=== PATIENT | male | born 1975 | race Caucasian/White ===

== ENCOUNTER 2018-04-04 11:31 | Emergency (ER) | payer SELFPAY ==
[2018-04-04 11:32] VITALS: BP 177/101; PULSE 97; RESP 16; TEMP 36.8; O2SAT 98; BMI 33.5
--- NOTE | 2018-04-04 12:08 | ED.DCSUM_ITS ---
- ER Visit Summary Date of Service: 04/04/18 Chief Complaint: Possible pinkeye History of Present Illness: The patient is a 42 M who noted left eye irritation and burning started yesterday. Was gradual in onset. He denies foreign body sensation. He states he does have somewhat blurry vision. 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 He does not wear glasses or contacts. He has not had recent URI symptoms. Physical Examination: Vital signs significant for blood pressure 177/101, otherwise unremarkable. Patient sitting upright in bed in a well lit room. He is in no acute distress. Head neck examination does reveal left eye to be diffusely injected. There is mild watering. Pupils equal and reactive. No foreign body noted on exam. Extraocular movements fully intact. Test Results: [] Emergency Department Course and Treatment: Fluorescein is applied and reveals no evidence of uptake. Patient will be treated with gentamicin eyedrops and off work for 24 hours. Treatment Plan: [] Disposition: Discharge Impression: Conjunctivitis left eye This note was generated with [employer] dictation software. It may contain incorrect words, spelling, and punctuation that were not noted in review of the chart prior to signing ED Disposition - Plan for ED Patient: Chief Complaint: Eye Problem Referrals: Care Physician,No Primary [Primary Care Provider] -
--- NOTE | 2018-04-04 12:08 | ED.DEP ---
ED Disposition - Plan for ED Patient: Disposition: Home or Assisted Living Chief Complaint: Eye Problem Instructions: ED Conjunctivitis Nonspecific Referrals: Ryan Crawford MD [STAFF PHYSICIAN] - 3-5 Days if not improving Additional Instructions: Use 2 drops Gentamicin four times a day until redness resolved for full 24 hours.
[2018-04-04] MEDS: Fluorescein 1 MG STRIP 1 STRIP LEFT EYE (12:15)
[2018-04-04] MEDS: Gentamicin Sulfate 1 OPTH.BTL 2 DRP LEFT EYE (12:22)
== END 2018-04-04 12:36 | disposition home or self-care (01) ==
LOC: ED 12:15
PROVIDERS: Emergency Provider Emergency Medicine
DX: H10.32 Unspecified acute conjunctivitis, left eye (principal)
CPT/HCPCS: 99282

== ENCOUNTER 2018-08-06 04:11 | Emergency (ER) | payer SELFPAY ==
[2018-08-06 04:11] VITALS: BP 197/131; PULSE 97; RESP 16; TEMP 36.6; O2SAT 98; BMI 33.6
--- NOTE | 2018-08-06 04:24 | ED.VISSUMM ---
- ER Visit Summary Date of Service: 08/06/18 Chief Complaint: Right hand tingling and pain History of Present Illness: The patient is a 43 M with no primary care physician. He reports that he is tingling in his right hand and pain began approximately 3 hours ago while he was watching TV. Reports is an aching pain is 6 out of 10 at worst and 4-10 currently. Is worsened by nothing. Is relieved by rest. Reports that he feels as though he needs to shake his hand out. Patient is right-hand dominant. He works in a restaurant as a cook. He denies any recent trauma. No fall, MVA, or change in activity. Reports he has not had this previously. He denies any weakness. He denies any other neurologic symptoms. Physical Examination: Vitals: Stable. Afebrile. General: Well-nourished and well-developed. Head: Normocephalic atraumatic. Neck: Supple, no lymphadenopathy. No JVD. Nontender. Cardiovascular: Regular rate and rhythm. No murmurs. Respiratory: No respiratory distress. Clear to auscultation bilaterally. Abdominal: Soft, nontender, nondistended, normal bowel sounds. No guarding, rebound, or peritoneal signs. Back: Nontender. Extremities: Nontender, no edema. 2+ radial pulse. He does have a positive Tinel sign on the right. He had decreased sensation to light touch in the median nerve distribution. Skin: Normal color, no rash. Neurologic: Alert and oriented ?3. Cranial nerves II through XII are intact. Normal strength and sensation. Psych: Normal affect. Emergency Department Course and Treatment: Patient was treated with naproxen. He was placed in a Velcro wrist splint. He is resting comfortably. Treatment Plan: Patient will be discharged instructions [facility] if not improving. Please placed on naproxen at home. Return to the emergency department for any worsening symptoms. Disposition: To home in improved and stable condition. Impression: 1. Carpal tunnel on right. This note was generated with [employer] software. It may contain incorrect words, spelling, and punctuation that were not noted in review of the chart prior to signing ED Disposition - Plan for ED Patient: Disposition: Home or Assisted Living Chief Complaint: Upper Extremity Injury Instructions: ED Carpal Tunnel Prescriptions: Naproxen [Naprosyn] 500 mg PO BID #14 tablet Referrals: Mary Grace Garibay [NON-STAFF] - 1 Week if not improving
[2018-08-06] MEDS: Naproxen 250 MG Tablet 500 MG PO (04:28)
[2018-08-06 04:37] VITALS: BP 163/110; RESP 16
== END 2018-08-06 04:37 | disposition home or self-care (01) ==
PROVIDERS: Emergency Provider Emergency Medicine
DX: G56.01 Carpal tunnel syndrome, right upper limb (principal)
CPT/HCPCS: 99283

== ENCOUNTER 2018-12-02 00:32 | Emergency (ER) | payer SELFPAY ==
[2018-12-02 00:33] VITALS: BP 200/110; PULSE 112; RESP 18; TEMP 36.6; O2SAT 98; BMI 33.9
[2018-12-02 00:37] VITALS: BP 191/107
--- NOTE | 2018-12-02 00:49 | ED.VISSUMM ---
- ER Visit Summary Date of Service: 12/02/18 Chief Complaint: Dental pain History of Present Illness: The patient is a 43 M who presents with dental pain. This been present for 3 days. He states he knows that work needs done on his teeth but he does not have dental insurance so has not had anything done yet. His pain is worse in his right upper teeth for the past 3 days. No fevers or facial swelling. No nausea vomiting or diarrhea. Physical Examination: Heart rate 112 blood pressure 191/107 vitals otherwise normal Patient has widespread dental decay he has tenderness with percussion of the right central maxillary incisor there is no focal abscess amenable to incision and drainage No facial or jaw swelling No trismus Clear speech Heart regular Lungs clear Test Results: Not indicated Emergency Department Course and Treatment: Patient was started on penicillin VK. He was given his first dose here. I did stress that this does not replace definitive dental care and stressed the importance of follow-up with dentist. He was given a list of resources in the area of local dental clinics. He was also advised that his blood pressure is high at 191/107 and I stressed the importance of outpatient follow-up for this and recommended the [facility] clinic. Patient understands to return for new or worsening symptoms and was discharged home. Treatment Plan: [] Disposition: Discharge Impression: Odontalgia Dental caries This note was generated with [employer] dictation software. It may contain incorrect words, spelling, and punctuation that were not noted in review of the chart prior to signing ED Disposition - Plan for ED Patient: Referrals: Care Physician,No Primary [Primary Care Provider] -
--- NOTE | 2018-12-02 00:52 | ED.DCSUM_ITS ---
- ER Visit Summary Date of Service: 12/02/18 Chief Complaint: Dental pain History of Present Illness: The patient is a 43 M who presents with dental pain. This been present for 3 days. He states he knows that work needs done on his teeth but he does not have dental insurance so has not had anything done yet. His pain is worse in his right upper teeth for the past 3 days. No fevers or facial swelling. No nausea vomiting or diarrhea. Physical Examination: Heart rate 112 blood pressure 191/107 vitals otherwise normal Patient has widespread dental decay he has tenderness with percussion of the right central maxillary incisor there is no focal abscess amenable to incision and drainage No facial or jaw swelling No trismus Clear speech Heart regular Lungs clear Test Results: Not indicated Emergency Department Course and Treatment: Patient was started on penicillin VK. He was given his first dose here. I did stress that this does not replace definitive dental care and stressed the importance of follow-up with dentist. He was given a list of resources in the area of local dental clinics. He was also advised that his blood pressure is high at 191/107 and I stressed the importance of outpatient follow-up for this and recommended the [facility] clinic. Patient understands to return for new or worsening symptoms and was discharged home. Treatment Plan: [] Disposition: Discharge Impression: Odontalgia Dental caries This note was generated with [employer] dictation software. It may contain incorrect words, spelling, and punctuation that were not noted in review of the chart prior to signing ED Disposition - Plan for ED Patient: Referrals: Care Physician,No Primary [Primary Care Provider] -
--- NOTE | 2018-12-02 00:52 | ED.DEP ---
ED Disposition - Plan for ED Patient: Instructions: ED Tooth Pain Prescriptions: Penicillin V Potassium 500 mg PO 4X/DAY #40 tab Referrals: Care Physician,No Primary [Primary Care Provider] -
[2018-12-02] MEDS: Penicillin Vk 250 MG Tablet 500 MG PO (01:37)
== END 2018-12-02 01:39 | disposition home or self-care (01) ==
LOC: ED 01:01
PROVIDERS: Emergency Provider Emergency Medicine
DX: K02.9 Dental caries, unspecified (principal); R03.0 Elevated blood-pressure reading, without diagnosis of hypertension
CPT/HCPCS: 99282

== ENCOUNTER 2023-08-16 08:29 | Emergency (ER) | payer OTHER, SELFPAY ==
[2023-08-16 08:29] VITALS: BP 129/103; PULSE 126; RESP 18; TEMP 36.3; O2SAT 100; BMI 25.8
--- NOTE | 2023-08-16 08:39 | ED.VIS.DENTA ---
HPI History of Present Illness Chief Complaint: Dental Detail of Chief Complaint: Front tooth pain and swelling Informant: patient and spouse/S.O. Onset/Context/Timing Onset: Days Context: Sudden Onset Timing: Continuous Quality: Pain Location: Front upper incisor, tooth #9 Current Severity: Moderate Maximum Severity: Severe Worsened by: Nothing specific Relieved by: NSAIDs and Topicals Associated Symptoms Assocated Symptom - Dental: face swelling; Negative for fever, jaw swelling, cold sensitivity or hot sensitivity Narrative Narrative: Patient is a 48-year-old male with diabetic retinopathy, hypertension who presents with dental pain. He has poor dentition. He reports swelling of his upper lip. Denies any redness to his skin. He denies fever or chills. He denies history rheumatic fever, heart murmur, SBE or being immune suppressed. He denies skin lesions. He denies myalgias or arthralgias. Prior similar symptoms: Yes Recent Illness/Hospitalization: No PFSH PFSH Medical History (Updated 08/16/23 @ 08:[address] Rayray Carbajal MD) Physical exam, pre-employment Home Medications penicillin V potassium 500 mg tablet 500 mg PO 4X/DAY #40 tabs 12/02/18 [Rx Last Taken Unknown] clindamycin HCl 300 mg capsule (Cleocin HCl) 300 mg PO Q6H #28 CAPSULES 08/16/23 [Rx Last Taken Unknown] hydrocodone-acetaminophen 5-325mg 5mg-325mg 1 tab PO Q6H PRN PRN Pain 3 days #10 TABLETS 08/16/23 [Rx Last Taken Unknown] Allergy/AdvReac Type Severity Reaction Status Date / Time No Known Allergies Allergy Verified 08/16/23 08:31 Surgical History no surgical history no surgical history Social History Smoking Status: Never smoker ROS ROS ED Constitutional Constitutional ED: Denies chills, fever(s), subjective, sweats or weight loss Eyes Eyes: Reports other Details: Impaired vision due to diabetic retinopathy ; Denies blurry vision or change in vision ENT ENT ED: Denies rhinorrhea or sore throat Cardiovascular Cardiovascular: Denies chest pain or palpitations Respiratory/Chest Respiratory/Chest: Denies cough, dyspnea or dyspnea on exertion Hematologic/Lymphatic Hematologic/Lymphatic: Denies easy bleeding or easy bruising Allergic/Immunologic Allergic/Immunologic ED: Reports mouth swelling; Denies tongue swelling or urticaria EXAM Physical Exam Narrative Exam Narrative: Tachycardic. He states he is nervous. Const Vital Signs: 08/16/23 08:29 Temperature 97.4 F L Temperature Source Temporal Pulse Rate 126 H Respiratory Rate 18 Blood Pressure 129/103 H Blood Pressure Mean 111 Pulse Ox 100 Oxygen Delivery Method Room Air Positive well nourished and well developed General Appearance ED: well developed and NAD HEENT tenderness; Negative for trauma Face and Sinus: sinuses nontender Mouth ED: Yes lips normal, Yes tongue normal, Yes salivary gland normal and Yes oral and palatal mucosa abnormal Mouth: lips normal, tongue normal, salivary gland normal and oral and palatal mucosa abnormal Teeth and Gingiva: abnormal tooth and associated gingiva, caries, gingiva abnormal and poor dentition Throat: posterior oropharynx normal Eyes PERRL and EOMs intact bilaterally General Eye ED: Negative for pale conjunctiva or scleral icterus Neck no lymphadenopathy, supple and no JVD Lymph Lymphatic: no lymphadenopathy noted Chest Wall inspection of chest normal and palpation of chest normal Resp normal respiratory effort, no retractions and clear to auscultation bilaterally Cardio regular rhythm, S1 normal heart sound, S2 normal heart sound and no murmurs Extremity normal to inspection and no joint enlargement General Extremety ED: Negative for edema or other findings General Extremity: Negative for edema or other findings Neuro oriented x3, CN's II-XII intact bilaterally and moves all extremities Sensorium / Orientation: alert Psych mental status grossly normal Skin no rashes or lesions noted MDM MDM MDM Narrative Medical decision making narrative: Dental abscess involving tooth #9 with fistulization. There is drainage of purulent material. Premature was expressed with pushing on the above the tooth. The tooth is eroded to the pulp. Patient has significant dental pathology with other eroded teeth. Treatment is clindamycin and open analgesic. In light of his poorly controlled diabetes with endorgan dysfunction hesitant to give NSAIDs. He received first dose of clindamycin and hydrocodone in the emergency Discharge Plan Triage Chief Complaint: Dental ED Provider: Rayray Carbajal Dx/Rx/DC Orders Clinical Impression: Apical alveolar abscess, Type 2 diabetes mellitus, Hypertension, Diabetic retinopathy, Dental fistula Instructions: ED Abscess Antibiotic Treatment Only Prescriptions: New clindamycin HCl [Cleocin HCl] 300 mg capsule 300 mg PO Q6H Qty: 28 0RF hydrocodone-acetaminophen [hydrocodone-acetaminophen] 5-325 mg tablet 1 tab PO Q6H PRN PRN (Reason: Pain) 3 Days Qty: 10 0RF No Action penicillin V potassium 500 MG tablet 500 mg PO 4X/DAY Qty: 40 0RF Primary Care Provider: Claus Thomas Referrals: Care Physician,No Primary [Non-Staff] - Activity Restrictions/Additional Instructions: Occasion as prescribed until gone. Follow-up with dentist. Disposition Disposition: Home, Self Care
[2023-08-16] MEDS: HYDROcodone Bitartrate/Apap 5/325 Tablet PO (08:47)
[2023-08-16] MEDS: Clindamycin HCl 150 MG Capsule 300 MG PO (08:47)
--- OUTSIDE RECORDS SUMMARY | 2023-08-16 09:13 | XMS RPT_ITS | CCD ---
Author Name Unknown Address [address] [place] [address] Organization [facility] Care Team Providers Care Getter Operator Name Role Phone William PHILLIPS, Claus Garcia Primary Care Provider [phone] Medications Current Medications Medication Drug Class(es) Dates Sig (Normalized) Sig (Original) phenylephrine hydrochloride 25 mg/ml ophthalmic solution (1 source) alpha-1 Adrenergic Agonist Start: 06-20-2022 End: 06-20-2022 PHENYLephrine 2.5 % 1 Drop (AK-DILATE, EVY-SYNEPHRINE) proparacaine hydrochloride 5 mg/ml ophthalmic solution (1 source) Local Anesthetic Start: 06-20-2022 End: 06-20-2022 proparacaine 0.5 % 1 Drop (ALCAINE) tropicamide 10 mg/ml ophthalmic solution (1 source) Anticholinergic Start: 06-20-2022 End: 06-20-2022 tropicamide 1 % 1 Drop (MYDRIACYL) Problems Problem Classification Problem Date Documented Date Episodic/Chronic Diabetes mellitus with complications (4 sources) Type 2 diabetes mellitus; Translations: [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, right eye] Onset: 06-20-2022 Chronic Essential hypertension (2 sources) Essential hypertension; Translations: [Essential (primary) hypertension] Onset: 06-20-2022 Chronic Other eye disorders (2 sources) Hemorrhage of left vitreous body; Translations: [Vitreous hemorrhage, left eye] Onset: 06-20-2022 Chronic Results Test Name Value Interpretation Reference Range Facil ity Vital Signs Date Time Vital Sign Value Performing Clinician Faci lity 06-20-2022 10:36-0500 Diastolic blood pressure 67 mm[Hg] Vinicio Drew MD Work Phone: [facility] 06-20-2022 10:36-0500 Heart rate 99 /min Vinicio Drew MD Work Phone: [facility] 06-20-2022 10:36-0500 Systolic blood pressure 112 mm[Hg] Vinicio Drew MD Work Phone: [facility] Encounters Encounter Date Encounter Type Care Provider Facility Start: 06-20-2022 End: 06-20-2022 Patient encounter procedure Vinicio Drew MD Work Phone: Ophthalmology Procedures Date Procedure Procedure Detail Performing Clinician Start: 06-20-2022 Fundus photography w/interpretation & report Vinicio Drew MD Work Phone: Start: 06-20-2022 Computerized ophthal tiesha imaging retina Vinicio Drew MD Work Phone: Plan of Treatment Date Care Activity Detail Author Start: 06-21-2022 End: 08-21-2022 Calcium [Mass/volume] in Serum or Plasma CALCIUM TOTAL BLD Lab Routine Type 2 diabetes mellitus with right eye affected by severe nonproliferative retinopathy without macular edema, without long-term current use of insulin (HCC) 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, without long-term current use of insulin (HCC) Expected: 06/21/2022, Expires: 08/21/2022 [facility] Work Phone: Social History Date Type Detail Facility Start: 06-20-2022 Tobacco smoking stat us MDIS Never smoked tobacco [facility] Start: 06-20-2022 Tobacco use and exposure Smoke less tobacco non-user [facility] Start: 06-20-2022 Alcohol intake Lifetime non-d german (finding) [facility] Start: 1975 Sex Assigned At Not on file [facility] Start: 06-10-2022 End: 06-20-2022 Exposure to SARS-CoV-2 (event) Not sure [facility] Instructions 06-20-2022 Patient Instructions Note Date & Type Note Facility 06-20-2022 Instructions Vinicio Drew MD - 06/20/2022 11:07 AM EST Please obtain bloodwork tomorrow at any [facility] (must fast 8 hours prior to blood draw) You have an appointment with Dr. Cindy White MD for complete physical on 07/09/2022 at 10:20 in the [place] office You will see Dr. Noonan, Retina specialist (office will call to set up an appointment date and time with you) Please keep your blood sugar under good control to minimize risk of ocular complications from diabetes. If you have any questions please contact our office at [phone]. After office hours or on the weekend, please call Dr. Drew on his cell phone at [phone]. documented in this encounter [facility] History of Present illness Narrative 06-20-2022 Vinicio Drew MD - 06/20/2022 10:50 AM EST Note Date & Type Note Facility 06-20-2022 History of Presen t illness Narrative ASSESSMENT/PLAN: 1. Type 2 diabetes mellitus with right eye affected by severe nonproliferative retinopathy without macular edema, without long-term current use of insulin ([facility]) - ICD9: 250.50, 362.06, ICD10: E11.3491 (primary diagnosis) 2. 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 Vitreous hemorrhage of left eye ([facility]) - ICD9: 379.23, ICD10: H43.12 Patient to obtain the following bloodwork: - CBC + DIFF - HEMOGLOBIN (HGB) - COMP METABOLIC PANEL - HGB A1C - BUN BLOOD - CREATININE BLD - CALCIUM TOTAL BLD - GLUCOSE FASTING BLD - ELECTROLYTES BLD PNL - Consult Dr. Saran MD, PhD, Retina for further evaluation and treatment - Consult Dr. Cindy White MD, for further evaluation and treatment. Patient is scheduled for 07/09/2022 at 10:20 am in the [place] office (already previously scheduled) Patient reports never having an eye exam and has not seen a primary care physician in over 10 years 4. Essential hypertension - ICD9: 401.9, ICD10: I10 Blood pressure 112/67, pulse 99. I have confirmed and edited as necessary the relevant ophthalmic history, review of systems, surgical history, and ophthalmological examination findings as obtained by the ophthalmic technical staff. I have seen and examined Carlos Nunes. I have discussed the examination findings, diagnosis, and treatment options with Carlos Nunes and/or his family. I have also reviewed and agree with the assessment and plan as stated above and agree with all its relevant components. I gave the patient the opportunity to ask questions about the findings, diagnosis, and treatment options. Vinicio Drew MD documented in this encounter [facility] Evaluation note Note Date & Type Note Facility documented in this encounter [facility] Medications Administered Section Active Administered Medications - up to 3 most recent administrations Medication Order MAR Action Action Date Dose Rate Site PHENYLephrine 2.5 % 1 Drop (AK-DILATE, EVY-SYNEPHRINE) 1 Drop, BOTH EYES, DIRECTED, Starting on Sat06/20/22 at 1000, Until Sat06/20/22 at 2158, Administer for dilation PROTECT FROM LIGHT Given 06/20/2022 10:00 AM EST 1 Drop proparacaine 0.5 % 1 Drop (ALCAINE) 1 Drop, BOTH EYES, DIRECTED, Starting on Sat06/20/22 at 1000, Until Sat06/20/22 at 2158, Administer for pneumo tonometry, tonopen tonometry, or pachymetry. In the event of a proparacaine shortage, administer tetracaine 0.5% ophthalmic drops 1 drop in the left eye as directed for pneumo tonometry, tonopen tonometry, or pachymetry Given 06/20/2022 10:00 AM EST 1 Drop tropicamide 1 % 1 Drop (MYDRIACYL) 1 Drop, BOTH EYES, DIRECTED, Starting on Sat06/20/22 at 1000, Until Sat06/20/22 at 2158, Administer for dilation Given 06/20/2022 10:00 AM EST 1 Drop Additional Source Comments Source Comments (unrecognize d section and content) In the event this informatio n is protected by the Federal Confidentiality of Alcohol and Drug Abuse Patient Records regulations: The Federal rules restrict any use of the information to criminally investigate or prosecute any alcohol or drug abuse patient.[facility] Reason for Visit (unrecogniz ed section and content) Specialty Diagnoses / Procedures Referred By Contact Referred To Contact Ophthalmology / OPHTHALMOLOGY Diagnoses Diabetic eye exam (HCC) Procedures OFFICE/OUTPATIENT [facility] 15-29 MINUTES diabetic-seeing shades Self Vinicio Drew MD [address] [id number] Referral ID Status Reason Start Date Expiration Date Visits Requested Visits Authorized [id number] Authorized Patient Cleared - Qualified 100% FAS 2 09/17/2022 99 99 Care Teams (unrecognized sec tion and content) FOR RECORDS PERTAINING TO PATIENTS WHO ARE OR HAVE BEEN ENROLLED IN A CHEMICAL DEPENDENCY/SUBSTANCEABUSE PROGRAM, SOME INFORMATION MAY BE OMITTED. This clinical summary was aggregated from multiple sources. Caution should be exercised in using it in the provision of clinical care. This summary normalizes information from multiple sources, and as a consequence, information in this document may materially change the coding, format and clinical context of patient data. In addition, data may be omitted in some cases. CLINICAL DECISIONS SHOULD BE BASED ON THE PRIMARY CLINICAL RECORDS. [facility] [employer] [facility]. provides no warranty or guarantee of the accuracy or completeness of information in this document.
== END 2023-08-16 09:09 | disposition home or self-care (01) ==
PROVIDERS: Emergency Provider Emergency Medicine; PCP Internal Medicine; Visit Provider Emergency Medicine
DX: K04.6 Periapical abscess with sinus (principal); E11.319 Type 2 diabetes mellitus with unspecified diabetic retinopathy without macular edema; E11.638 Type 2 diabetes mellitus with other oral complications; I10 Essential (primary) hypertension
CPT/HCPCS: 99283